=== PATIENT | female | born 1990 | race African-American/Black ===

== ENCOUNTER 2020-10-15 20:05 | Emergency (ER) | payer MEDICAID ==
[~2020-10-15] VITALS: Ht 167.6 cm; Wt 55.0 kg
[2020-10-15 20:44] LABS: BASOPHILS % 0.6 % (0.0-2.0); EOSINOPHILS % 0.1 % (0.0-5.0); HEMATOCRIT. 39.3 % (36.0-48.0); HEMOGLOBIN. 13.2 g/dL (12.0-16.0); LYMPHOCYTES % 12.2 % (20.0-50.0); MEAN CORPUSCULAR VOLUME 95.7 fL (81.0-99.0); MEAN PLATELET VOLUME 7.6 fl (7.4-10.4); MONOCYTES % 2.5 % (2.0-8.0); NEUTROPHILS % 84.6 % (40.0-76.0); PLATELET 301 x1000/uL (130-400); RED BLOOD CELL COUNT 4.11 mill/uL (4.2-5.4); RED CELL DISTRIBUTION WIDTH 13.6 % (11.6-14.6)
[2020-10-15] MEDS ORDERED: FAMOTIDINE 20MG/2ML VIAL IV SCH (20:45)
[2020-10-15] MEDS ORDERED: SODIUM CHLORIDE 0.9% 1,000 ML IV ONE ×2 (20:45→22:00)
[2020-10-15] MEDS ORDERED: ONDANSETRON HCL 4MG/2ML INJ IV ONE (20:45)
[2020-10-15] MEDS ORDERED: MAGNESIUM/ALUMINUM HYDROXIDE/SIMETHICONE 30ML UDC PO ONE (20:45)
[2020-10-15 20:50] LABS: CHLORIDE 107 mEq/L (98-107)
[2020-10-15 20:52] LABS: HCG SCREEN NEGATIVE; PROTHROMBIN TIME 10.8 sec (9.6-11.0)
[2020-10-15 21:14] LABS: CLARITY URINE CLOUDY (CLEAR); COLOR URINE YELLOW (YELLOW); KETONES URINE TRACE (NEGATIVE); LEUKOCYTE ESTERASE URINE NEGATIVE (NEGATIVE); NITRITE URINE NEGATIVE (NEGATIVE); OCCULT BLOOD URINE NEGATIVE (NEGATIVE); PH URINE 6.5 (4.5-8.0); PROTEIN URINE 1+ (NEGATIVE); SPECIFIC GRAVITY URINE 1.036 (1.005-1.030)
[2020-10-15 21:38] LABS: *AMPHETAMINES SCREEN URINE NEGATIVE (NEGATIVE); *BARBITURATES SCREEN URINE NEGATIVE (NEGATIVE); *BENZODIAZEPINES SCREEN URINE NEGATIVE (NEGATIVE); METHADONE URINE SCREEN NEGATIVE (NEGATIVE); OPIATES URINE SCREEN NEGATIVE (NEGATIVE); PHENCYCLIDINE URINE SCREEN NEGATIVE (NEGATIVE)
[2020-10-15 21:50] LABS: *COCAINE SCREEN URINE PRESUMTIVE POSITIVE (NEGATIVE); CANNABINOID URINE SCREEN PRESUMTIVE POSITIVE (NEGATIVE)
[2020-10-15] MEDS ORDERED: KETOROLAC 15MG/ML VIAL IV NR (22:00)
[2020-10-15] MEDS ORDERED: SUCRALFATE 1 G/10 ML UDC PO ONE (22:45)
[2020-10-15] MEDS ORDERED: PROCHLORPERAZINE 10MG/2ML VIAL IV ONE (22:45)
[2020-10-16] MEDS ORDERED: IOHEXOL-300 100 ML BOTTLE ONE (00:37)
[2020-10-16 01:35] VITALS: BP 142/79
== END 2020-10-16 01:47 | disposition home or self-care (01) ==
LOC: ER 20:05 → CANBEDREQ 10-16 01:09 → ER 10-16 01:47
DX: D25.9 Leiomyoma of uterus, unspecified (principal); D18.09 Hemangioma of other sites; K43.9 Ventral hernia without obstruction or gangrene; J45.909 Unspecified asthma, uncomplicated
CPT/HCPCS: 36415; 71045; 74177; 76705; 80053; 80305; 81003; 83605; 83690; 84145; 84484; 84703; 85025; 85044; 85610; 86850; 86900; 86901; 87040; 87086; 93005; 96361; 96374; 96375; 99285; J0780; J1885; J2405; J3490; J7030; Q9967